=== PATIENT | female | born 1970 | race Caucasian/White ===

== ENCOUNTER → 2016-07-18 | Outpatient (CLI) | payer OTHER ==
--- NOTE | 2016-07-18 18:58 | CT ---
EXAMINATION TYPE: CT sinus wo con DATE OF EXAM: 07/18/2016 COMPARISON: NONE HISTORY: DIFFICULTY IN BREATHING THROUGH NOSE X1 YEAR. CT DLP: 654.4 mGycm Automated exposure control for dose reduction was used. FINDINGS: There is bilateral patency of the ostiomeatal complex. There is fairly normal aeration of the paranas al sinuses. There is mild symmetric hypertrophy of the nasal turbinates. Orbital margins are intact. There is no evidence of an orbital mass. The maxilla is intact. Visualized mandible appears intact. Z ygomatic arches appear normal. Nasal bone appears intact. There is evidence for cerebral cortical atr ophy. IMPRESSION: THERE IS SOME NASAL TURBINATE HYPERTROPHY. NO EVIDENCE OF SINUSITIS. THERE IS SOME CEREBRAL CORTICAL ATROPHY FOR THE PATIENT'S RELATIVELY YOUNG AGE.
== END | disposition home or self-care (01) ==
LOC: RADCTMAIN 17:36
PROVIDERS: ATTEND Otolaryngology
DX: J34.3 Hypertrophy of nasal turbinates (principal); J32.9 Chronic sinusitis, unspecified
CPT/HCPCS: 70486

== ENCOUNTER → 2016-11-29 | Outpatient (CLI) | payer OTHER ==
--- NOTE | 2016-11-29 12:08 | CT ---
EXAMINATION TYPE: CT pelvis w con DATE OF EXAM: 11/29/2016 COMPARISON: NONE INDICATION: Bilateral lymph node swelling in groin, not present at time of scan DLP: 752 mGycm, Automated exposure control for dose reduction was used. CONTRAST: 100 mL of Omnipaque 300. Study performed with Oral Contrast TECHNIQUE: Axial images were obtained at 5 mm thick sections through the pelvis. Reconstructed images in the coronal plane are reviewed on the computer. FINDINGS: Limited CT sections are obtained the lung bases. The lung bases are clear. CT pelvis: Loops of bowel distended with oral contrast are normal. However appears to be the appendix is normal. Small bowel loops distended with oral contrast are normal. Couple of diverticuli are with in the sigmoid colon. Uterus appears normal. The left adnexal cyst is present measuring 1.1 cm. Urinary bladder appears nor mal with contrast. Couple small shotty lymph nodes are within the inguinal regions bilaterally. No enlarged inguinal john nopathy is evident. Suspicious pelvic adenopathy is not evident. IMPRESSIONS: 1. Unremarkable CT pelvis 2. No suspicious inguinal adenopathy present
--- NOTE | 2016-12-02 13:04 | MM ---
Reason for exam: screening (asymptomatic). Last mammogram was performed 1 year and 4 months ago. History: Patient history of other cancer. Family history of breast cancer in maternal grandmother. Took hormonal contraceptives for 2 years beginning at age 19. Physical Findings: A clinical breast exam by your physician is recommended on an annual basis and results should be correlated with mammographic findings. MG Screening Mammo w CAD Bilateral CC and MLO view(s) were taken. Prior study comparison: July 25, 2015, bilateral MG screening mammo w CAD. July 11, 2014, bilateral MG diagnostic mammo w CAD JESICA. The breast tissue is heterogeneously dense. This may lower the sensitivity of mammography. Developing asymmetry in the right breast middle depth upper aspect. ASSESSMENT: Incomplete: need additional imaging evaluation, BI-RAD 0 RECOMMENDATION: Special view mammogram of the right breast. If lesion persists on supplemental views, image directed ultrasound is recommended. [facility] will attempt to contact patient to return for supplemental views and ultrasound if indicated.
== END | disposition home or self-care (01) ==
LOC: RADCTMAIN 09:15
PROVIDERS: ATTEND Midwife
DX: Z12.31 Encounter for screening mammogram for malignant neoplasm of breast (principal); R59.0 Localized enlarged lymph nodes
CPT/HCPCS: 72193; G0202; Q9967

== ENCOUNTER → 2016-12-31 | Day surgery (SDC) | payer OTHER ==
[2016-12-31 11:52] VITALS: RESP 16; BMI 29.4
[2016-12-31 14:45] VITALS: BP 147/77; PULSE 76; TEMP 97.9
--- NOTE | 2016-12-31 16:12 | USB ---
EXAMINATION TYPE: US biopsy breast VAD RT, Post procedure diagnostic mammo RT wo CAD DATE OF EXAM: 12/31/2016 CLINICAL HISTORY: 46-year-old female R92.8 Abnormal mammogram. TECHNIQUE: Ultrasound guided core biopsy of the right breast. COMPARISON: 12/04/2016 and 11/29/2016 FINDINGS: The procedure of ultrasound guided core biopsy was explained to the patient. Benefits, alt ernatives, and risks were discussed. An informed consent was then obtained. The 8 x 5 x 7 mm cyst cluster versus mildly complex cyst is identified at the 11:00 position, 2.5 cm from the nipple. The adjacent 9 mm cyst now has a simple cystic appearance. The former lesion is targ eted for biopsy. The patient was placed in supine positioning for imaging and for the procedure. The overlying skin w as prepped and draped in usual sterile fashion. Lidocaine was used as anesthetic into the skin and s ubcutaneous tissue up to area of concern in the right breast. Under ultrasound guidance, a 13-gauge vacuum-assisted Mammotome Elite biopsy gun device was used to o btain 4 core samples. Lesion collapsed after the first sample. Following this, a ribbon clip was left in lesion. The patient tolerated the procedure well without any immediate complication. The patient was kept in the radiology department for short stay after the procedure and then discharged home in stable condi tion. Post procedure mammogram shows the clip in the upper outer quadrant at a middle depth. IMPRESSION: Successful, uncomplicated ultrasound guided core biopsy of cyst cluster versus mildly complex cyst at the 11:00 right breast; full pathology results to follow.
== END ==
LOC: RADUSWWP 11:21
PROVIDERS: ATTEND Surgery
DX: N60.11 Diffuse cystic mastopathy of right breast (principal); N60.81 Other benign mammary dysplasias of right breast; R92.8 Other abnormal and inconclusive findings on diagnostic imaging of breast; Z88.5 Allergy status to narcotic agent; Z91.041 Radiographic dye allergy status
CPT/HCPCS: 88305

== ENCOUNTER 2017-05-29 12:44 | Emergency (ER) | payer OTHER ==
[2017-05-29 13:56] LABS: Basophils % (A) 1 %; Eosinophils # (A) 0.1 k/uL (0-0.7); Eosinophils % (A) 1 %; HCT 35.8 % (34.0-46.0); HGB 12.3 gm/dL (11.4-16.0); Lymphocytes # (A) 1.9 k/uL (1.0-4.8); Lymphocytes % (A) 27 %; MCH 31.2 pg (25.0-35.0); MCHC 34.5 g/dL (31.0-37.0); MCV 90.5 fL (80.0-100.0); Mean Platelet Volume 7.3; Monocytes # (A) 0.3 k/uL (0-1.0); Monocytes % (A) 5 %; Neutrophils # (A) 4.5 k/uL (1.3-7.7); Neutrophils % (A) 64 %; Platelet Count 279 k/uL (150-450); RBC 3.95 m/uL (3.80-5.40); WBC 7.1 k/uL (3.8-10.6)
[2017-05-29 14:01] LABS: ALT 43 U/L (9-52); AST 34 U/L (14-36); Albumin 4.8 g/dL (3.5-5.0); Alkaline Phosphatase 67 U/L (38-126); Amylase 84 U/L (30-110); Anion Gap 15 mmol/L; Blood Urea Nitrogen 8 mg/dL (7-17); Calcium 10.1 mg/dL (8.4-10.2); Carbon Dioxide 29 mmol/L (22-30); Chloride 101 mmol/L (98-107); Glucose 98 mg/dL (74-99); Lipase 79 U/L (23-300); Potassium 4.1 mmol/L (3.5-5.1); Sodium 145 mmol/L (137-145); Total Bilirubin 0.3 mg/dL (0.2-1.3); Total Protein 7.2 g/dL (6.3-8.2)
[2017-05-29 14:11] LABS: Appearance,Urine Clear (Clear); Bilirubin,Urine Negative (Negative); Blood,Urine Small (Negative); Color,Urine Yellow; Glucose,Urine (UA) Negative (Negative); Ketones,Urine Negative (Negative); Leukocyte Esterase,Urine Negative (Negative); Mucus,Urine Rare /hpf; Nitrite,Urine Negative (Negative); Protein,Urine Negative (Negative); RBC,Urine 3 /hpf (0-5); Specific Gravity,Urine 1.012 (1.001-1.035); Squamous Epithelial Cell,Urine 4 /hpf (0-4); Urobilinogen,Urine <2.0 mg/dL (<2.0); WBC,Urine 1 /hpf (0-5)
[2017-05-29] MEDS ORDERED: METOCLOPRAMIDE 5 MG/ML 2 ML VIAL IM STA (15:05)
[2017-05-29] MEDS ORDERED: KETOROLAC 60 MG/2 ML VIAL IM STA (15:05)
--- NOTE | 2017-05-29 15:10 | ED ---
General Adult HPI - General Chief complaint: Abdominal Pain Stated complaint: lower abdominal pain Time Seen by Provider: 05/29/17 14:48 Source: patient, RN notes reviewed Mode of arrival: wheelchair Limitations: no limitations - History of Present Illness Initial comments: Patient is a pleasant 46-year-old female presenting to the emergency Department with left lower abdominal discomfort. Onset was around 12:30. Onset was sudden. Onset has been waxing and waning. Patient does feel slightly constipated, no diarrhea. No dysuria or hematuria. There is some mild discomfort in the left back near the CVA as well. Patient does have some mild nausea when symptoms become severe. No vomiting. Discomfort is moderate at this time. Patient did have similar symptoms around 1 month ago that lasted for a few hours and resolved. - Related Data Home Medications Medication Instructions Recorded Confirmed Iron 18 tab PO HS 12/26/16 05/29/17 Simvastatin [Zocor] 20 mg PO HS 12/26/16 05/29/17 Garcinia Cambogia 1 tab PO BID 05/29/17 05/29/17 Previous Rx's Medication Instructions Recorded Ibuprofen [Motrin] 600 mg PO Q6HR PRN #20 tab 05/29/17 Allergies Allergy/AdvReac Type Severity Reaction Status Date / Time Iodinated Contrast- Oral and Allergy Rash/Hives Verified 05/29/17 15:47 IV Dye morphine Allergy Rash/Hives Verified 05/29/17 15:47 oxycodone Allergy Anaphylaxis Verified 05/29/17 15:47 tramadol HCl [From Ultram] Allergy Rash/Hives Verified 05/29/17 15:47 Review of Systems ROS Statement: Those systems with pertinent positive or pertinent negative responses have been documented in the HPI. ROS Other: All systems not noted in ROS Statement are negative. Constitutional: Denies: fever Eyes: Denies: eye pain ENT: Denies: ear pain Respiratory: Denies: cough, dyspnea Cardiovascular: Denies: chest pain Endocrine: Denies: fatigue Gastrointestinal: Reports: abdominal pain, nausea. Denies: vomiting Genitourinary: Denies: dysuria, hematuria Musculoskeletal: Reports: back pain Skin: Denies: rash Neurological: Denies: weakness Past Medical History Past Medical History: Chest Pain / Angina, Hyperlipidemia Additional Past Medical History / Comment(s): cervical cancer-2004. History of Any Multi-Drug Resistant Organisms: None Reported Past Surgical History: Section, Cholecystectomy, Tubal Ligation Additional Past Surgical History / Comment(s): chronic neck pain. "cervical cancer removal 2004" Past Anesthesia/Blood Transfusion Reactions: No Reported Reaction Past Psychological History: Anxiety, Depression Smoking Status: Never smoker Past Alcohol Use History: Occasional Past Drug Use History: None Reported General Exam Limitations: no limitations General appearance: alert, in no apparent distress Head exam: Present: atraumatic Eye exam: Present: normal appearance, PERRL ENT exam: Present: normal oropharynx Neck exam: Present: normal inspection Respiratory exam: Present: normal lung sounds bilaterally Cardiovascular Exam: Present: regular rate, normal rhythm Expanded Peripheral pulses: 2+: Posterior Tibialis (R), Posterior Tibialis (L), Dorsalis Pedis (R), Dorsalis Pedis (L) GI/Abdominal exam: Present: soft, tenderness (Minimal tenderness left lower quadrant/flank). Absent: distended, guarding, rebound, rigid, pulsatile mass Extremities exam: Present: normal inspection. Absent: pedal edema, calf tenderness Back exam: Present: CVA tenderness (L) (Minimal tenderness below the left CVA region) Neurological exam: Present: alert Psychiatric exam: Present: normal affect, normal mood Skin exam: Present: normal color Course Vital Signs 05/29/17 05/29/17 12:51 15:44 Temperature 98.4 F 98.1 F Pulse Rate 85 79 Respiratory 20 18 Rate Blood Pressure 134/84 133/88 O2 Sat by Pulse 98 96 Oximetry Medical Decision Making - Medical Decision Making Patient reevaluated and resting comfortably in bed. Patient updated on results. Patient refuses enema at this point and states she will take medications on her own. Patient is advised to continue anti-inflammatories - Lab Data Result diagrams: 05/29/17 13:28 05/29/17 13:28 Lab Results 05/29/17 05/29/17 05/29/17 Range/Units 13:28 13:28 13:28 WBC 7.1 (3.8-10.6) k/uL RBC 3.95 (3.80-5.40) m/uL Hgb 12.3 (11.4-16.0) gm/dL Hct 35.8 (34.0-46.0) % MCV 90.5 (80.0-100.0) fL MCH 31.2 (25.0-35.0) pg MCHC 34.5 (31.0-37.0) g/dL RDW 13.0 (11.5-15.5) % Plt Count 279 (150-450) k/uL Neutrophils % 64 % Lymphocytes % 27 % Monocytes % 5 % Eosinophils % 1 % Basophils % 1 % Neutrophils # 4.5 (1.3-7.7) k/uL Lymphocytes # 1.9 (1.0-4.8) k/uL Monocytes # 0.3 (0-1.0) k/uL Eosinophils # 0.1 (0-0.7) k/uL Basophils # 0.0 (0-0.2) k/uL Sodium 145 (137-145) mmol/L Potassium 4.1 (3.5-5.1) mmol/L Chloride 101 (98-107) mmol/L Carbon Dioxide 29 (22-30) mmol/L Anion Gap 15 mmol/L BUN 8 (7-17) mg/dL Creatinine 0.60 (0.52-1.04) mg/dL Est GFR (CKD-EPI)AfAm >90 (>60 ml/min/1.73 sqM) Est GFR (CKD-EPI)NonAf >90 (>60 ml/min/1.73 sqM) Glucose 98 (74-99) mg/dL Calcium 10.1 (8.4-10.2) mg/dL Total Bilirubin 0.3 (0.2-1.3) mg/dL AST 34 (14-36) U/L ALT 43 (9-52) U/L Alkaline Phosphatase 67 (38-126) U/L Total Protein 7.2 (6.3-8.2) g/dL Albumin 4.8 (3.5-5.0) g/dL Amylase 84 (30-110) U/L Lipase 79 (23-300) U/L Urine Color Yellow Urine Appearance Clear (Clear) Urine pH 6.0 (5.0-8.0) Ur Specific [place] 1.012 (1.001-1.035) Urine Protein Negative (Negative) Urine Glucose (UA) Negative (Negative) Urine Ketones Negative (Negative) Urine Blood Small H (Negative) Urine Nitrite Negative (Negative) Urine Bilirubin Negative (Negative) Urine Urobilinogen <2.0 (<2.0) mg/dL Ur Leukocyte Esterase Negative (Negative) Urine RBC 3 (0-5) /hpf Urine WBC 1 (0-5) /hpf Ur Squamous Epith Cells 4 (0-4) /hpf Urine Mucus Rare H (None) /hpf - Radiology Data Radiology results: image reviewed (Computed tomography scan of the abdomen and pelvis does show a left ovarian cyst 2.2 cm and some stool in the colon.) Disposition Clinical Impression: Abdominal pain Disposition: HOME SELF-CARE Condition: Stable Instructions: Abdominal Pain (ED), Ovarian Cyst (ED), Constipation (ED), High Fiber Diet (ED) Additional Instructions: Please follow-up with primary care physician in the next day or 2 for recheck. Return for increased pain, fever, worsening or change in symptoms or other concerns. Prescriptions: Ibuprofen [Motrin] 600 mg PO Q6HR PRN #20 tab PRN Reason: Pain Is patient prescribed a controlled substance at d/c from ED?: No Referrals: Mickey Box DO [Primary Care Provider] - 1-2 days Time of Disposition: 16:36
--- NOTE | 2017-05-29 15:41 | CT ---
EXAMINATION TYPE: CT abdomen pelvis wo con DATE OF EXAM: 05/29/2017 COMPARISON: NONE INDICATION: LLQ PAIN DLP: 400.3 mGycm, Automated exposure control for dose reduction was used. CONTRAST: None Study performed without Oral Contrast TECHNIQUE: Axial images were obtained from above the diaphragm to the pubic rami in the axial plane a t 5 mm thick sections. Reconstructed images are reviewed on the computer in the coronal plane. FINDINGS: Limited CT sections are obtained the lung bases. The lung bases are clear. CT ABDOMEN: Liver: Normal Spleen: Normal Pancreas: Normal Adrenal glands: The adrenal glands are normal. Gallbladder: Surgically absent. Surgical clips are present at the bed Kidneys: No masses are evident. No hydronephrosis is present. No cysts are present. No renal stone s are identified. Aorta: Vascular calcification is within the aorta. Inferior vena cava: Normal. CT PELVIS: Loops of bowel within the abdomen and pelvis are normal. There are loops of bowel which are incom pletely distended or lack oral contrast limiting their evaluation. A few sigmoid diverticula are pres ent. No inflammatory changes to suggest acute diverticulitis are evident. Fecal debris is within the colon. Appendix: Normal as visualized. Urinary bladder: Normal. Genitourinary structures: Uterus is normal. There is a hypodense area on the left ovary measuring 2.2 cm may be a complex cyst. This could be further evaluated with ultrasound. This potentially could ac count for the patient's left lower quadrant pain. Osseous structures: No suspicious lytic or sclerotic lesions. IMPRESSIONS: 1. No suspicious acute changes 2. There is a 2.2 cm cyst on the left ovary potentially accounting for the patient's left lower quadr ant pain.
[2017-05-29 15:45] VITALS: BP 133/88; PULSE 79; RESP 18; TEMP 98.1
== END 2017-05-29 16:48 | disposition home or self-care (01) ==
LOC: EC 12:44
DX: R10.32 Left lower quadrant pain (principal); R11.0 Nausea; N83.202 Unspecified ovarian cyst, left side; E78.5 Hyperlipidemia, unspecified; Z79.899 Other long term (current) drug therapy; Z88.5 Allergy status to narcotic agent; Z91.048 Other nonmedicinal substance allergy status; Z85.41 Personal history of malignant neoplasm of cervix uteri; Z90.49 Acquired absence of other specified parts of digestive tract; Z98.890 Other specified postprocedural states
CPT/HCPCS: 99284; 96372; 36415; 80053; 82150; 83690; 85025; 81001; 74176; J2765; J1885

== ENCOUNTER → 2017-07-03 | Outpatient (CLI) | payer OTHER ==
--- NOTE | 2017-07-08 09:35 | USB ---
Reason for exam: follow-up at short interval from prior study. History: Patient history of other cancer. Family history of breast cancer in maternal grandmother. Benign US biopsy breast VAD RT of the right breast, December 31, 2016. Took hormonal contraceptives for 2 years beginning at age 19. Physical Findings: Nurse did not find any significant physical abnormalities on exam. US Breast RT Right complete breast ultrasound includes all four quadrants, the retroareolar region and axilla. Finding demonstrates a 0.4 x 0.2 x 0.3cm lesion too small to characterize at 12 o'clock increased through transmission and a 0.4 x 0.2 x 0.2cm lesion too small to characterize at 11 o'clock, appears smaller than on prior biopsy. These results were verbally communicated with the patient and result sheet given to the patient on 07/03/17. ASSESSMENT: Benign, BI-RAD 2 RECOMMENDATION: Return to routine screening mammogram schedule for both breasts. Back on schedule.
== END | disposition home or self-care (01) ==
LOC: RADUSWWP 15:11
PROVIDERS: ATTEND Surgery
DX: R92.8 Other abnormal and inconclusive findings on diagnostic imaging of breast (principal)

== ENCOUNTER 2017-09-25 17:33 | Emergency (ER) | payer OTHER ==
[2017-09-25 18:12] VITALS: PULSE 88
--- NOTE | 2017-09-25 18:40 | ED ---
General Adult HPI - General Chief complaint: Back Pain/Injury Stated complaint: bulging disc in back Source: patient Mode of arrival: ambulatory Limitations: no limitations - History of Present Illness Initial comments: Dictation was produced using [employer] dictation software. please excuse any grammatical, word or spelling errors. Chief Complaint: 46-year-old female with past medical history of chronic back pain presents with acute exacerbation of back pain. History of Present Illness: Patient states the last time she had a back pain flareup was approximately 1 year ago. She states she was here where she got an MRI of her back in 2010. She is told that she had herniated disc to the lumbar spine area. 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 She complains of paresthesias to the anterior bilateral thighs. Denies any saddle anesthesia, no bowel or bladder incontinence. No urinary retention. Patient is on chronic steroids. Denies any history of osteoporosis. No history of IV drug abuse. The ROS documented in this emergency department record has been reviewed and confirmed by me. Those systems with pertinent positive or negative responses have been documented in the HPI. All other systems are other negative and/or noncontributory. - Related Data Home Medications Medication Instructions Recorded Confirmed Iron 18 tab PO HS 12/26/16 05/29/17 Simvastatin [Zocor] 20 mg PO HS 12/26/16 05/29/17 Garcinia Cambogia 1 tab PO BID 05/29/17 05/29/17 Previous Rx's Medication Instructions Recorded Ibuprofen [Motrin] 600 mg PO Q6HR PRN #20 tab 05/29/17 Baclofen [Lioresal] 20 mg PO TID #12 tab 09/25/17 Allergies Allergy/AdvReac Type Severity Reaction Status Date / Time Iodinated Contrast- Oral and Allergy Rash/Hives Verified 09/25/17 18:07 IV Dye morphine Allergy Rash/Hives Verified 09/25/17 18:07 oxycodone Allergy Anaphylaxis Verified 09/25/17 18:07 tramadol HCl [From Ultram] Allergy Rash/Hives Verified 09/25/17 18:07 Review of Systems ROS Statement: Those systems with pertinent positive or pertinent negative responses have been documented in the HPI. ROS Other: All systems not noted in ROS Statement are negative. Past Medical History Past Medical History: Chest Pain / Angina, Hyperlipidemia Additional Past Medical History / Comment(s): cervical cancer-2004. History of Any Multi-Drug Resistant Organisms: None Reported Past Surgical History: Section, Cholecystectomy, Tubal Ligation Additional Past Surgical History / Comment(s): chronic neck pain. "cervical cancer removal 2004" Past Anesthesia/Blood Transfusion Reactions: No Reported Reaction Past Psychological History: Anxiety, Depression Smoking Status: Never smoker Past Alcohol Use History: Occasional Past Drug Use History: None Reported General Exam - General Exam Comments Initial Comments: PHYSICAL EXAM: General Impression: Alert and oriented x3, not in acute distress HEENT: Normocephalic atraumatic, extra-ocular movements intact, pupils equal and reactive to light bilaterally, mucous membranes moist. Cardiovascular: Heart regular rate and rhythm, S1&S2 audible, no murmurs, rubs or gallops Chest: Lungs clear to auscultation bilaterally, no rhonchi, no wheeze, no rales Abdomen: Bowel sounds present, abdomen soft, non-tender, non-distended, no organomegaly Musculoskeletal: Pulses present and equal in all extremities, no peripheral edema, tenderness to palpation over the lumbar spine midline Motor: Power 5/5 bilaterally, no focal deficits noted Neurological: CN II-XII grossly intact, paresthesias to light touch of the bilateral anterior thigh worse in the right than the left Skin: Intact with no visualized rashes Psych: Normal affect and mood Limitations: no limitations Course Vital Signs 09/25/17 18:07 Temperature 97.9 F Pulse Rate 88 Respiratory 14 Rate Blood Pressure 171/102 O2 Sat by Pulse 97 Oximetry Medical Decision Making - Medical Decision Making ED course: 46-year-old female presents with acute back pain. Vital signs upon arrival are within acceptable limits. Patient's symptoms are very vague. She does report paresthesias of the right leg worse than the left that extend from the inguinal area down to the knee. This does not make any dermatomal sense. No findings to suggest neurologic emergency causing back pain. No clinical suspicion of such cauda equina, epidural abscess or other emergent back pain process. Patient does not have any symptoms of saddle anesthesia, urinary retention, urinary or bowel incontinence. No spasticity or clonus to the lower extremities. His are intact. X-ray was obtained showing no acute processes. Patient is reevaluated with stable findings. Discussed with patient that there is very low clinical suspicion of emergent cause of back pain however did express her that she would likely benefit from MRI. Patient given option to be admitted to observation for MRI in the morning versus being discharged and getting MRI outpatient. Patient requested that she be discharged to get outpatient MRI. This plan is reasonable. At time of discharge patient's pain was controlled and she was given prescription when necessary back strain. - Lab Data Result diagrams: 09/25/17 18:55 09/25/17 18:55 Lab Results 09/25/17 09/25/17 Range/Units 18:55 18:55 WBC 6.7 (3.8-10.6) k/uL RBC 3.99 (3.80-5.40) m/uL Hgb 12.5 (11.4-16.0) gm/dL Hct 36.1 (34.0-46.0) % MCV 90.5 (80.0-100.0) fL MCH 31.3 (25.0-35.0) pg MCHC 34.6 (31.0-37.0) g/dL RDW 13.2 (11.5-15.5) % Plt Count 225 (150-450) k/uL Neutrophils % 60 % Lymphocytes % 32 % Monocytes % 4 % Eosinophils % 2 % Basophils % 0 % Neutrophils # 4.0 (1.3-7.7) k/uL Lymphocytes # 2.2 (1.0-4.8) k/uL Monocytes # 0.3 (0-1.0) k/uL Eosinophils # 0.1 (0-0.7) k/uL Basophils # 0.0 (0-0.2) k/uL Sodium 139 (137-145) mmol/L Potassium 3.9 (3.5-5.1) mmol/L Chloride 102 (98-107) mmol/L Carbon Dioxide 30 (22-30) mmol/L Anion Gap 7 mmol/L BUN 11 (7-17) mg/dL Creatinine 0.66 (0.52-1.04) mg/dL Est GFR (CKD-EPI)AfAm >90 (>60 ml/min/1.73 sqM) Est GFR (CKD-EPI)NonAf >90 (>60 ml/min/1.73 sqM) Glucose 97 (74-99) mg/dL Calcium 9.6 (8.4-10.2) mg/dL Magnesium 1.9 (1.6-2.3) mg/dL Disposition Clinical Impression: Back pain Disposition: HOME SELF-CARE Instructions: Acute Low Back Pain (ED) Prescriptions: Baclofen [Lioresal] 20 mg PO TID #12 tab Is patient prescribed a controlled substance at d/c from ED?: No Referrals: Mickey Box DO [Primary Care Provider] - 1-2 days Time of Disposition: 20:01
[2017-09-25] MEDS ORDERED: SODIUM CHLORIDE 0.9% 1,000 ML IV STA (18:42)
[2017-09-25] MEDS ORDERED: ACETAMINOPHEN IV (For NPO) 1,000 MG in EMPTY BAG 1 BAG IVPB ONE (18:43)
[2017-09-25 19:14] LABS: Basophils % (A) 0 %; Eosinophils # (A) 0.1 k/uL (0-0.7); Eosinophils % (A) 2 %; HCT 36.1 % (34.0-46.0); HGB 12.5 gm/dL (11.4-16.0); Lymphocytes # (A) 2.2 k/uL (1.0-4.8); Lymphocytes % (A) 32 %; MCH 31.3 pg (25.0-35.0); MCHC 34.6 g/dL (31.0-37.0); MCV 90.5 fL (80.0-100.0); Mean Platelet Volume 7.3; Monocytes # (A) 0.3 k/uL (0-1.0); Monocytes % (A) 4 %; Neutrophils % (A) 60 %; Platelet Count 225 k/uL (150-450); RBC 3.99 m/uL (3.80-5.40); RDW 13.2 % (11.5-15.5); WBC 6.7 k/uL (3.8-10.6)
[2017-09-25 19:19] LABS: Anion Gap 7 mmol/L; Blood Urea Nitrogen 11 mg/dL (7-17); Calcium 9.6 mg/dL (8.4-10.2); Carbon Dioxide 30 mmol/L (22-30); Chloride 102 mmol/L (98-107); Glucose 97 mg/dL (74-99); Magnesium 1.9 mg/dL (1.6-2.3); Potassium 3.9 mmol/L (3.5-5.1); Sodium 139 mmol/L (137-145)
--- NOTE | 2017-09-25 19:25 | XR ---
EXAMINATION TYPE: XR lumbosacral spine min 4V DATE OF EXAM: 09/25/2017 COMPARISON: NONE HISTORY: Back pain TECHNIQUE: 5 views FINDINGS: Vertebra have normal spacing and alignment. Posterior elements are intact. Sacroiliac joint s appear normal. IMPRESSION: Normal lumbar spine exam.
[2017-09-25 20:31] VITALS: BP 135/88; RESP 18; TEMP 98
== END 2017-09-25 20:30 | disposition home or self-care (01) ==
LOC: EC 17:33
DX: M54.5 Low back pain (principal); R20.2 Paresthesia of skin; G89.29 Other chronic pain; E78.5 Hyperlipidemia, unspecified; Z79.899 Other long term (current) drug therapy; Z91.041 Radiographic dye allergy status; Z88.5 Allergy status to narcotic agent; Z88.6 Allergy status to analgesic agent; Z85.41 Personal history of malignant neoplasm of cervix uteri; Z87.898 Personal history of other specified conditions
CPT/HCPCS: 36415; 80048; 83735; 85025; 72110; 99283; 96374; 96361; J0131

== ENCOUNTER → 2017-12-29 | Outpatient (CLI) | payer OTHER ==
--- NOTE | 2017-12-30 13:29 | MM ---
Reason for exam: screening (asymptomatic). Last mammogram was performed 1 year ago. History: Patient history of other cancer. Family history of breast cancer in maternal grandmother. Benign US biopsy breast VAD RT of the right breast, December 31, 2016. Took hormonal contraceptives for 2 years beginning at age 19. Physical Findings: A clinical breast exam by your physician is recommended on an annual basis and results should be correlated with mammographic findings. MG Screening Mammo w CAD Bilateral CC and MLO view(s) were taken. Prior study comparison: December 31, 2016, right breast MG diagnostic mammo RT wo CAD. December 04, 2016, right breast MG work up mamm w CAD RT. The breast tissue is heterogeneously dense. This may lower the sensitivity of mammography. Finding: There are typically benign round calcifications in the central position of the left breast. Previous mammotome biopsy in the right breast. Asymmetric breast tissue in the right breast upper quadrant at biopsy site. There is no discrete abnormality. ASSESSMENT: Benign, BI-RAD 2 RECOMMENDATION: Routine screening mammogram of both breasts in 1 year.
== END ==
LOC: RADMAMWWP 11:07
PROVIDERS: ATTEND Obstetrics & Gynecology
DX: Z12.31 Encounter for screening mammogram for malignant neoplasm of breast (principal)
CPT/HCPCS: 77067

== ENCOUNTER → 2019-01-18 | Outpatient (CLI) | payer OTHER ==
--- NOTE | 2019-01-19 09:07 | MM ---
Reason for exam: screening (asymptomatic). Last mammogram was performed 1 year and 1 month ago. History: Patient history of other cancer. Family history of breast cancer in maternal grandmother and breast cancer in paternal aunt at age 50. Benign US biopsy breast VAD RT of the right breast, December 31, 2016. Took hormonal contraceptives for 2 years beginning at age 19. Physical Findings: A clinical breast exam by your physician is recommended on an annual basis and results should be correlated with mammographic findings. MG Screening Mammo w CAD Bilateral CC and MLO view(s) were taken. Prior study comparison: December 29, 2017, bilateral MG screening mammo w CAD. December 31, 2016, right breast MG diagnostic mammo RT wo CAD. The breast tissue is heterogeneously dense. This may lower the sensitivity of mammography. Benign calcifications. Previous mammotome biopsy in the right breast. No significant changes when compared with prior studies. ASSESSMENT: Benign, BI-RAD 2 RECOMMENDATION: Routine screening mammogram of both breasts in 1 year.
== END | disposition home or self-care (01) ==
LOC: RADMAMWWP 12:54
PROVIDERS: ATTEND Obstetrics & Gynecology
DX: Z12.31 Encounter for screening mammogram for malignant neoplasm of breast (principal)
CPT/HCPCS: 77067

== ENCOUNTER → 2019-09-09 | Outpatient (CLI) | payer OTHER ==
--- NOTE | 2019-09-09 08:01 | CT ---
EXAMINATION TYPE: CT sinus wo con DATE OF EXAM: 09/09/2019 COMPARISON: 07/18/2016 HISTORY: Chronic sinusitis CT DLP: 583.7 mGycm. Automated Exposure Control for Dose Reduction was Utilized. TECHNIQUE: CT scan of the sinuses is performed without contrast, axial images are obtained, coronal r eformatted images are also reviewed. FINDINGS: Dental artifact results in some limitation exam. Nasal septal deviation noted. Minimal muco nick thickening involving ethmoid air cells and sphenoid sinus. The paranasal sinuses including the f rontal, ethmoid, sphenoid, and maxillary sinuses bilaterally are well-aerated without abnormal opacif ication. The ostiomeatal complex is patent bilaterally on the coronal images. Visualized portion of mastoid air cells show no abnormal opacification. The globes are intact bilate rally. IMPRESSION: 1. Minimal chronic sinusitis.
== END | disposition home or self-care (01) ==
LOC: RADCTMAIN 07:20
PROVIDERS: ATTEND Otolaryngology
DX: J32.9 Chronic sinusitis, unspecified (principal)
CPT/HCPCS: 70486

== ENCOUNTER → 2020-07-25 | Outpatient (CLI) | payer OTHER ==
--- NOTE | 2020-07-27 08:54 | MM ---
Reason for exam: screening (asymptomatic). Last mammogram was performed 1 year and 6 months ago. History: Patient history of other cancer. Family history of breast cancer in maternal grandmother and breast cancer in paternal aunt at age 50. Benign US biopsy breast VAD RT of the right breast, December 31, 2016. Took hormonal contraceptives for 2 years beginning at age 19. Physical Findings: A clinical breast exam by your physician is recommended on an annual basis and results should be correlated with mammographic findings. MG Screening Mammo w CAD Bilateral CC and MLO view(s) were taken. Prior study comparison: January 18, 2019, bilateral MG screening mammo w CAD. December 29, 2017, bilateral MG screening mammo w CAD. The breast tissue is heterogeneously dense. This may lower the sensitivity of mammography. Finding #1: There is a 4.5 mm obscured round mass located 4-5 cm from the nipple in the anterior, central position of the right breast. Finding #2: There are typically benign grouped/clustered calcifications in the left breast. Previous mammotome biopsy in the right breast. ASSESSMENT: Incomplete: need additional imaging evaluation, BI-RAD 0 RECOMMENDATION: Special view mammogram of the right breast. If lesion persists on supplemental views, image directed ultrasound is recommended. [facility] will attempt to contact patient to return for supplemental views and ultrasound if indicated.
== END | disposition home or self-care (01) ==
LOC: RADMAMWWP 14:51
PROVIDERS: ATTEND Obstetrics & Gynecology
DX: Z12.31 Encounter for screening mammogram for malignant neoplasm of breast (principal); Z80.3 Family history of malignant neoplasm of breast
CPT/HCPCS: 77067

== ENCOUNTER → 2020-08-08 | Outpatient (CLI) | payer OTHER ==
--- NOTE | 2020-08-09 09:43 | MM ---
Reason for exam: additional evaluation requested from abnormal screening. Last mammogram was performed less than 1 month ago. History: Patient history of other cancer. Family history of breast cancer in maternal grandmother and breast cancer in paternal aunt at age 50. Benign US biopsy breast VAD RT of the right breast, December 31, 2016. Took hormonal contraceptives for 2 years beginning at age 19. Physical Findings: Nurse did not find any significant physical abnormalities on exam. MG Work Up Mamm w CAD RT Spot compression CC, spot compression MLO, and LM view(s) were taken of the right breast. Prior study comparison: July 25, 2020, bilateral MG screening mammo w CAD. January 18, 2019, bilateral MG screening mammo w CAD. The breast tissue is heterogeneously dense. This may lower the sensitivity of mammography. Previously described round mass central right anterior depth most likely benign asymmetry/overlapping on spot compression. These results were verbally communicated with the patient and result sheet given to the patient on 08/08/20. ASSESSMENT: Incomplete: need additional imaging evaluation, BI-RAD 0 RECOMMENDATION: Ultrasound of the right breast. (area of pain 9-12 'clock)
--- NOTE | 2020-08-09 10:11 | USB ---
Reason for exam: additional evaluation requested from abnormal screening. History: Patient history of other cancer. Family history of breast cancer in maternal grandmother and breast cancer in paternal aunt at age 50. Benign US biopsy breast VAD RT of the right breast, December 31, 2016. Took hormonal contraceptives for 2 years beginning at age 19. US Breast Workup Limited RT Right limited breast ultrasound including focal area of concern, retroareolar and axilla demonstrates a 6 x 2 x 5mm hypoechoic lesion at 11 o'clock most likely complex cyst or fibroadenoma, 6 month follow up recommended. These results were verbally communicated with the patient and result sheet given to the patient on 08/08/20. ASSESSMENT: Probably benign, BI-RAD 3 RECOMMENDATION: Ultrasound of the right breast in 6 months.
== END | disposition home or self-care (01) ==
LOC: RADMAMWWP 13:36
PROVIDERS: ATTEND Obstetrics & Gynecology
DX: R92.2 Inconclusive mammogram (principal); N64.89 Other specified disorders of breast; Z85.9 Personal history of malignant neoplasm, unspecified; Z80.3 Family history of malignant neoplasm of breast
CPT/HCPCS: 77065

== ENCOUNTER → 2021-01-25 | Outpatient (CLI) | payer OTHER ==
--- NOTE | 2021-01-25 11:01 | USB ---
Reason for exam: follow-up at short interval from prior study. History: Patient has history of other cancer at age 35. Family history of breast cancer in maternal grandmother and breast cancer in paternal aunt at age 50. Benign US biopsy breast VAD RT of the right breast, December 31, 2016. Took hormonal contraceptives for 2 years beginning at age 19. Physical Findings: Nurse did not find any significant physical abnormalities on exam. US Breast Limited RT Right limited breast ultrasound including focal area of concern, retroareolar and axilla demonstrates a 0.8 x 0.4 x 0.3cm hypoechoic lesion at 11 o'clock, suspect debris filled cyst versus 6mm previously. Continued follow up recommended. These results were verbally communicated with the patient and result sheet given to the patient on 01/25/21. ASSESSMENT: Probably benign, BI-RAD 3 RECOMMENDATION: Follow-up diagnostic mammogram of both breasts in 6 months. Ultrasound of the right breast in 6 months.
== END | disposition home or self-care (01) ==
LOC: RADUSWWP 09:01
PROVIDERS: ATTEND Obstetrics & Gynecology
DX: N64.89 Other specified disorders of breast (principal); Z80.3 Family history of malignant neoplasm of breast; Z85.89 Personal history of malignant neoplasm of other organs and systems

== ENCOUNTER → 2021-08-08 | Outpatient (CLI) | payer OTHER ==
--- NOTE | 2021-08-08 15:30 | USB ---
Reason for Exam: Follow-up at short interval from prior study. Patient History: Menarche at age 13. First Full-Term at age 21. Other cancer, age 35. Hormonal Contraceptives, starting at age 19 for 2 years. 12/31/2016, Benign Core Biopsy on the right side. Maternal grandmother had breast cancer. Paternal aunt had breast cancer, age 50. Last menstrual period: 07/16/2021 Risk Values: Ginny 5 year model risk: 1.0%. NCI Lifetime model risk: 9.4%. Technique: Method: Targeted. Prior Study Comparison: 01/18/2019 Bilateral Screening Mammogram, [facility]. 07/25/2020 Bilateral Screening Mammogram, [facility]. 08/08/2020 Right Diagnostic Mammogram, [facility]. Findings: Mammogram Pattern appears symmetrical and stable. No persistent suspicious nodularity is identified within the right breast. Biopsy markers within the right breast. Left breast appears stable.. Tissue Density: The breast tissue is heterogeneously dense. This may lower the sensitivity of mammography. Findings: There is persistence of the 0.6 x 0.3 x 0.2 cm hypoechoic area. This is unchanged from prior study. Follow-up ultrasound performed in 6 months. Overall Assessment: Probably benign, BI-RAD 3 Assessment: MG diagnostic mammo w CAD [facility] - Bilateral: Probably benign, BI-RAD 3 - Right. Management: Diagnostic Breast Ultrasound of the right breast in 6 months. A clinical breast exam by your physician is recommended on an annual basis and results should be correlated with mammographic findings. Results were given to the patient verbally at the time of exam. Electronically signed and approved by: Derick Pearson D.O. Radiologis
== END | disposition home or self-care (01) ==
LOC: RADMAMWWP 14:16
PROVIDERS: ATTEND Obstetrics & Gynecology
DX: R92.8 Other abnormal and inconclusive findings on diagnostic imaging of breast (principal); Z80.3 Family history of malignant neoplasm of breast
CPT/HCPCS: 77066

== ENCOUNTER → 2022-01-02 | Outpatient (CLI) | payer OTHER | END | disposition home or self-care (01) | LOC: LABWHC1 10:45 | PROVIDERS: ATTEND Nurse Practitioner | DX: R53.83 Other fatigue (principal) | CPT/HCPCS: 36415; 84439; 84443 ==

== ENCOUNTER → 2022-02-08 | Outpatient (CLI) | payer OTHER ==
--- NOTE | 2022-02-08 15:43 | USB ---
Reason for Exam: Follow-up at short interval from prior study. Patient History: Menarche at age 13. First Full-Term at age 21. Other cancer, age 35. Hormonal Contraceptives, starting at age 19 for 2 years. 12/31/2016, Benign Core Biopsy on the right side. Maternal grandmother had breast cancer. Paternal aunt had breast cancer, age 50. Risk Values: Ginny 5 year model risk: 1.1%. NCI Lifetime model risk: 9.3%. Technique: Method: Targeted. Prior Study Comparison: 07/25/2020 Bilateral Screening Mammogram, [facility]. 08/08/2020 Right Diagnostic Mammogram, [facility]. 08/08/2021 Bilateral MG diagnostic mammo w CAD JESICA, [facility]. Findings: The upper section of the breast of the right breast, the axilla of the right breast and the retroareolar of the right breast were scanned. Targeted ultrasound right breast 11:00 position including the subareolar region and axilla. There is a stable, circumscribed, oval 6 x 6 x 3 mm hypoechoic lesion, possible debris-filled cyst. Given the patient's breast complexity on mammogram, patient's annual exam can be performed at diagnostic clinic. Overall Assessment: Probably benign, BI-RAD 3 Management: Diagnostic Mammogram of both breasts in 6 months. 1. Patient should continue monthly self breast exams. 2. A clinical breast exam by your physician is recommended on an annual basis. 3. This exam should not preclude additional follow-up of suspicious palpable abnormalities. Electronically signed and approved by: Levi Bunch M.D. Radiologist
== END | disposition home or self-care (01) ==
LOC: RADUSWWP 14:56
PROVIDERS: ATTEND Obstetrics & Gynecology
DX: R92.8 Other abnormal and inconclusive findings on diagnostic imaging of breast (principal); Z80.3 Family history of malignant neoplasm of breast

== ENCOUNTER → 2022-08-09 | Outpatient (CLI) | payer OTHER ==
--- NOTE | 2022-08-09 13:55 | MM ---
Reason for Exam: Additional evaluation requested from prior study. Last screening mammogram was performed 12 month(s) ago. Patient History: Menarche at age 13. First Full-Term at age 21. Perimenopausal. Other cancer, age 35. Hormonal Contraceptives, starting at age 19 for 2 years. 12/31/2016, Benign Core Biopsy on the right side. Maternal grandmother had breast cancer. Paternal aunt had breast cancer, age 50. Risk Values: Ginny 5 year model risk: 1.1%. NCI Lifetime model risk: 9.3%. Prior Study Comparison: 12/29/2017 Bilateral Screening Mammogram, [facility]. 01/18/2019 Bilateral Screening Mammogram, [facility]. 07/25/2020 Bilateral Screening Mammogram, [facility]. 08/08/2020 Right Diagnostic Mammogram, [facility]. 08/08/2021 Bilateral MG diagnostic mammo w CAD JESICA, [facility]. Tissue Density: The breast tissue is heterogeneously dense. This may lower the sensitivity of mammography. Findings: Analyzed By CAD. Mammotome biopsy clip in the right breast is redemonstrated. There are few benign appearing calcification in both breasts. No new mass or distortion in either breast. Overall Assessment: Benign, BI-RAD 2 Management: Screening Mammogram of both breasts in 1 year. . Results were given to the patient verbally at the time of exam. Patient should continue monthly self-breast exams. A clinical breast exam by your physician is recommended on an annual basis. This exam should not preclude additional follow-up of suspicious palpable abnormalities. Note on Ginny scores and lifetime risk: 1. A Ginny score greater than 3% is considered moderate risk. If this is the case, consider specialist referral to assess eligibility for a risk reducing agent. 2. If overall lifetime risk for the development of breast cancer is 20% or higher, the patient may qualify for future screening with alternating mammogram and breast MRI. Electronically signed and approved by: Yasmany Zavala M.D.
== END | disposition home or self-care (01) ==
LOC: RADMAMWWP 13:00
PROVIDERS: ATTEND Obstetrics & Gynecology
DX: R92.8 Other abnormal and inconclusive findings on diagnostic imaging of breast (principal); Z80.3 Family history of malignant neoplasm of breast
CPT/HCPCS: 77066; G0279; 77062

== ENCOUNTER 2023-07-30 10:14 | Emergency (ER) | payer OTHER ==
[2023-07-30 10:24] VITALS: RESP 18
--- NOTE | 2023-07-30 10:53 | ED ---
General Adult HPI - General Chief complaint: Headache Stated complaint: Headache Post Op Time Seen by Provider: 07/30/23 10:40 Source: patient, EMS, RN notes reviewed, old records reviewed Mode of arrival: EMS Limitations: no limitations - History of Present Illness Initial comments: 52-year-old female 2 days status post lumbar puncture which was performed 2 days prior in the outpatient setting. The patient has a mild headache with out associated vomiting. She admits that she did not eat or drink much today. No fever. No focal numbness or weakness. No photophobia. - Related Data Home Medications Medication Instructions Recorded Confirmed Simvastatin [Zocor] 20 mg PO DAILY 12/26/16 07/30/23 Butalb/APAP/Caff 50-325-40Mg 1 tab PO Q6H PRN 07/30/23 07/30/23 [Fioricet 50-325-40] Ibuprofen [Motrin] 800 mg PO Q8H PRN 07/30/23 07/30/23 Loratadine [Claritin] 10 mg PO DAILY 07/30/23 07/30/23 Metoprolol Tartrate [Lopressor] 25 mg PO DAILY 07/30/23 07/30/23 Omeprazole [PriLOSEC] 20 mg PO DAILY 07/30/23 07/30/23 Sennosides [Senokot] 8.6 mg PO DAILY 07/30/23 07/30/23 Terbinafine [LamISIL] 250 mg PO DAILY 07/30/23 07/30/23 Allergies Allergy/AdvReac Type Severity Reaction Status Date / Time Iodinated Contrast Media Allergy Rash/Hives Verified 07/30/23 12:12 [Iodinated Contrast- Oral and IV Dye] morphine Allergy Rash/Hives Verified 07/30/23 12:12 oxycodone Allergy Anaphylaxis Verified 07/30/23 12:12 tramadol HCl [From Ultram] Allergy Rash/Hives Verified 07/30/23 12:12 Review of Systems ROS Statement: Those systems with pertinent positive or pertinent negative responses have been documented in the HPI. ROS Other: All systems not noted in ROS Statement are negative. Past Medical History Past Medical History: Chest Pain / Angina, Hyperlipidemia Additional Past Medical History / Comment(s): cervical cancer-2004. History of Any Multi-Drug Resistant Organisms: None Reported Past Surgical History: Section, Cholecystectomy, Tubal Ligation Additional Past Surgical History / Comment(s): chronic neck pain. "cervical cancer removal 2004" Past Anesthesia/Blood Transfusion Reactions: No Reported Reaction Past Psychological History: Anxiety, Depression Smoking Status: Never smoker Past Alcohol Use History: Occasional Past Drug Use History: None Reported General Exam Limitations: no limitations General appearance: alert, in no apparent distress Head exam: Present: atraumatic, normocephalic Eye exam: Present: normal appearance ENT exam: Present: normal exam Neck exam: Present: normal inspection. Absent: tenderness, meningismus Respiratory exam: Present: normal lung sounds bilaterally. Absent: respiratory distress, wheezes Cardiovascular Exam: Present: regular rate, normal rhythm GI/Abdominal exam: Present: soft. Absent: distended, tenderness, guarding Extremities exam: Present: normal inspection, normal capillary refill Back exam: Present: normal inspection. Absent: tenderness Neurological exam: Present: alert, oriented X3, CN II-XII intact. Absent: motor sensory deficit Psychiatric exam: Present: normal affect, normal mood Skin exam: Present: warm, dry, intact Course Vital Signs 07/30/23 07/30/23 10:16 11:19 Temperature 98.1 F Pulse Rate 75 65 Respiratory 18 18 Rate Blood Pressure 156/95 153/93 O2 Sat by Pulse 100 99 Oximetry Medical Decision Making - Medical Decision Making Was pt. sent in by a medical professional or institution ([facility], PATIENT CARE, urgent care, hospital, or prison...) When possible be specific @ -No Did you speak to anyone other than the patient for history (EMS, parent, family, police, friend...)? What history was obtained from this source @ -No Did you review nursing and triage notes (agree or disagree)? Why? @ -I reviewed and agree with nursing and triage notes Were old charts reviewed (outside hosp., previous admission, EMS record, old E KG, old radiological studies, urgent care reports/EKG's, prison records)? Report findings @ -No old charts were reviewed Differential Headache: Migraine, tension, cluster, carbon monoxide, central venous thrombosis, pension karma temporal arteritis, acute closure glaucoma, intercranial hemorrhage, mastoiditis, sinusitis, head injury, this is not meant to be an all-inclusive list. EKG interpreted by me (3pts min.). @ -As above X-rays interpreted by me (1pt min.). @ -None done CT interpreted by me (1pt min.). @ -None done U/S interpreted by me (1pt. min.). @ -None done What testing was considered but not performed or refused? (CT, X-rays, U/S, labs)? Why? @ -None What meds were considered but not given or refused? Why? @ -None Did you discuss the management of the patient with other professionals (professionals i.e. , PA, PATIENT CARE, lab, RT, psych nurse, certified social workers in health care, milk sampler, t eacher, consumer safety officer, case planner)? Give summary @ -No Was smoking cessation discussed for >3mins.? @ -No Was critical care preformed (if so, how long)? @ -No Were there social determinants of health that impacted care today? How? (Homelessness, low income, unemployed, alcoholism, drug addiction, transportation, low edu. Level, literacy, decrease access to med. care, [facility], rehab)? @ -No Was there de-escalation of care discussed even if they declined (Discuss DNR or withdrawal of care, Hospice)? DNR status @ -No What co-morbidities impacted this encounter? (DM, HTN, Smoking, COPD, CAD, Cancer, CVA, ARF, Chemo, Hep., AIDS, mental health diagnosis, sleep apnea, morbid obesity)? @ -[Status post lumbar puncture Was patient admitted / discharged? Hospital course, mention meds given and route, prescriptions, significant lab abnormalities, going to OR and other pertinent info. @52-year-old female with headache 2 days after lumbar puncture. Patient admits that she has not been eating and drinking. The patient is well-appearing, stable vitals, nonfocal neurologic exam. No vomiting. Patient given caffeine, fluids, Toradol with significant improvement in headache. She will eat and drink more at home, maintain hydration. Follow-up with primary care provider and neurologist. Undiagnosed new problem with uncertain prognosis? @ -No Drug Therapy requiring intensive monitoring for toxicity (Heparin, Nitro, Insulin, Cardizem)? @ -No Were any procedures done? @ -No Diagnosis/symptom? @ -Post lumbar puncture headache Acute, or Chronic, or Acute on Chronic? @Acute Uncomplicated (without systemic symptoms) or Complicated (systemic symptoms)? @ -Default Side effects of treatment? @ -No Exacerbation, Progression, or Severe Exacerbation? @ -No Poses a threat to life or bodily function? How? (Chest pain, USA, CT, pneumonia, PE, COPD, DKA, ARF, appy, cholecystitis, CVA, Diverticulitis, Homicidal, Suicidal, threat to staff... and all critical care pts) @ -No - Lab Data Result diagrams: 07/30/23 11:02 07/30/23 11:02 Lab Results 07/30/23 07/30/23 Range/Units 11:02 11:02 WBC 5.9 (3.8-10.6) k/uL RBC 4.20 (3.80-5.40) m/uL Hgb 13.0 (11.4-16.0) gm/dL Hct 39.3 (34.0-46.0) % MCV 93.5 (80.0-100.0) fL MCH 30.9 (25.0-35.0) pg MCHC 33.0 (31.0-37.0) g/dL RDW 13.4 (11.5-15.5) % Plt Count 197 (150-450) k/uL MPV 8.4 Neutrophils % 75 % Lymphocytes % 15 % Monocytes % 6 % Eosinophils % 2 % Basophils % 0 % Neutrophils # 4.4 (1.3-7.7) k/uL Lymphocytes # 0.9 L (1.0-4.8) k/uL Monocytes # 0.4 (0-1.0) k/uL Eosinophils # 0.1 (0-0.7) k/uL Basophils # 0.0 (0-0.2) k/uL Sodium 142 (137-145) mmol/L Potassium 3.7 (3.5-5.1) mmol/L Chloride 104 (98-107) mmol/L Carbon Dioxide 30 (22-30) mmol/L Anion Gap 8 mmol/L BUN 11 (7-17) mg/dL Creatinine 0.67 (0.52-1.04) mg/dL Est GFR (CKD-EPI)AfAm >90 (>60 ml/min/1.73 sqM) Est GFR (CKD-EPI)NonAf >90 (>60 ml/min/1.73 sqM) Glucose 108 H (74-99) mg/dL Calcium 9.5 (8.4-10.2) mg/dL Total Bilirubin 0.4 (0.2-1.3) mg/dL AST 24 (14-36) U/L ALT 27 (4-34) U/L Alkaline Phosphatase 88 (38-126) U/L Total Protein 6.8 (6.3-8.2) g/dL Albumin 4.4 (3.5-5.0) g/dL Disposition Clinical Impression: Headache following lumbar puncture Disposition: HOME SELF-CARE Condition: Fair Instructions (If sedation given, give patient instructions): Lumbar Puncture (ED), Acute Headache (DC) Additional Instructions: Please eat and drink normally, maintain hydration. Is patient prescribed a controlled substance at d/c from ED?: No Referrals: Nadir Brady MD [Primary Care Provider] - 1-2 days Klaudia Cervantes MD [Medical Doctor] - 1-2 days Time of Disposition: 12:43
[2023-07-30] MEDS: CAFFEINE-SODIUM BENZOATE 500 MG in SODIUM CHLORIDE 0.9% 1,000 ML IVPB ONE (11:14)
[2023-07-30 11:16] LABS: Basophils % (A) 0 %; Eosinophils # (A) 0.1 k/uL (0-0.7); Eosinophils % (A) 2 %; HCT 39.3 % (34.0-46.0); Lymphocytes # (A) 0.9 k/uL (1.0-4.8); Lymphocytes % (A) 15 %; MCH 30.9 pg (25.0-35.0); MCV 93.5 fL (80.0-100.0); Mean Platelet Volume 8.4; Monocytes # (A) 0.4 k/uL (0-1.0); Monocytes % (A) 6 %; Neutrophils # (A) 4.4 k/uL (1.3-7.7); Neutrophils % (A) 75 %; Platelet Count 197 k/uL (150-450); RDW 13.4 % (11.5-15.5); WBC 5.9 k/uL (3.8-10.6)
[2023-07-30] MEDS: KETOROLAC 15 MG/ML 1 ML VIAL IVP STA (11:17)
[2023-07-30 11:36] LABS: ALT 27 U/L (4-34); AST 24 U/L (14-36); African American GFR (CKD) >90 (>60 ml/min/1.73 sqM); Albumin 4.4 g/dL (3.5-5.0); Alkaline Phosphatase 88 U/L (38-126); Anion Gap 8 mmol/L; Blood Urea Nitrogen 11 mg/dL (7-17); Calcium 9.5 mg/dL (8.4-10.2); Carbon Dioxide 30 mmol/L (22-30); Chloride 104 mmol/L (98-107); Glucose 108 mg/dL (74-99); Non-African American GFR(CKD) >90 (>60 ml/min/1.73 sqM); Potassium 3.7 mmol/L (3.5-5.1); Sodium 142 mmol/L (137-145); Total Bilirubin 0.4 mg/dL (0.2-1.3); Total Protein 6.8 g/dL (6.3-8.2)
[2023-07-30 15:04] VITALS: BP 165/99; PULSE 68; TEMP 98.2
== END 2023-07-30 15:05 | disposition home or self-care (01) ==
LOC: EC 10:14
DX: G97.1 Other reaction to spinal and lumbar puncture (principal); Z88.5 Allergy status to narcotic agent; Z91.041 Radiographic dye allergy status
CPT/HCPCS: 36415; 80053; 85025; 99284; 96365; 96375; J1885

== ENCOUNTER → 2023-08-11 | Outpatient (CLI) | payer OTHER ==
--- NOTE | 2023-08-13 10:28 | MM ---
Reason for Exam: Screening (asymptomatic). Last mammogram was performed 1 year(s) and 1 month(s) ago. Patient History: Menarche at age 13. First Full-Term at age 21. Perimenopausal. Other cancer, age 35. Currently using Hormonal Contraceptives, starting at age 19. 12/31/2016, Benign Core Biopsy on the right side. Maternal grandmother had breast cancer. Paternal aunt had breast cancer, age 50. Risk Values: Ginny 5 year model risk: 1.1%. NCI Lifetime model risk: 9.1%. Prior Study Comparison: 08/08/2020 Right Diagnostic Mammogram, [facility]. 08/08/2021 Bilateral MG diagnostic mammo w CAD JESICA, [facility]. 08/09/2022 Bilateral MG 3D diag mammo w/cad JESICA, [facility]. Tissue Density: The breasts are heterogeneously dense, which may obscure small masses. Findings: Analyzed By CAD. There is no suspicious group of microcalcifications or new suspicious mass in either breast. Biopsy clip marker right breast stable. Benign calcifications. Overall Assessment: Benign, BI-RAD 2 Management: Screening Mammogram of both breasts in 1 year. . Patient should continue monthly self-breast exams. A clinical breast exam by your physician is recommended on an annual basis. This exam should not preclude additional follow-up of suspicious palpable abnormalities. Note on Ginny scores and lifetime risk: 1. A Ginny score greater than 3% is considered moderate risk. If this is the case, consider specialist referral to assess eligibility for a risk reducing agent. 2. If overall lifetime risk for the development of breast cancer is 20% or higher, the patient may qualify for future screening with alternating mammogram and breast MRI. Electronically signed and approved by: Black Abernathy M.D. Radiologis
== END | disposition home or self-care (01) ==
LOC: RADMAMWWP 09:25
PROVIDERS: ATTEND Family Medicine
DX: Z12.31 Encounter for screening mammogram for malignant neoplasm of breast (principal); Z80.3 Family history of malignant neoplasm of breast
CPT/HCPCS: 77067